=== PATIENT | male | born 1960 | race African-American/Black ===

== ENCOUNTER 2019-10-22 16:00 | Outpatient (CLI) | payer BC ==
--- NOTE | 2019-10-22 20:18 | RAD ---
OSSEOUS SURVEY: 10/22/19 INDICATION: History of multiple myeloma. COMPARISON: None. FINDINGS: There is a 10 mm oval well circumscribed lucency seen on the lateral projection within the region of the lamina of C2 that is likely right of midline on the AP projection of the cervical spine. In light of the patient's history of multiple myeloma, this would be suspicious for a lytic lesion. No additi onal lesion seen within the skull or C-spine. No suspicious lesions seen within the thoracic or lumba r spine. There are surgical clips seen left of midline within the upper abdomen. The visualized lungs are clear. There is mild multilevel thoracolumbar scoliosis. No suspicious lesion is seen within the right or left humerus. No suspicious lesion is seen in the right or left forearm bones. There is mil d degenerative change of both hips. No suspicious lesions seen within the pelvis. The bowel gas patte rn is unobstructed. No suspicious lesion seen within the right femur. No suspicious lesion is seen wi thin the left femur. There is a subchondral cyst-like abnormality involving the lateral tibial plate au of the right tibia suspicious for a subchondral geode. This measures 2.4 cm in its greatest dimens ion. There is moderate osteoarthrosis of the right and left knee. No additional suspicious lytic lesi on is seen involving the lower extremity. IMPRESSION: 1. Focal oval lucency involving the right lamina of C2 suspicious for myelomatous lesion. 2. A well circumscribed peripherally sclerotic lesion underlying the articular surface of the la teral femorotibial joint of the right knee within the tibia suspicious for a degenerative cyst. 3. No additional suspicious lesion identified. POS: JIM
== END 2019-10-22 16:01 | disposition home or self-care (01) ==
LOC: BICRAD 16:00
PROVIDERS: ATTEND Internal Medicine Hematology & Oncology
DX: C90.00 Multiple myeloma not having achieved remission (principal); D47.2 Monoclonal gammopathy; M25.861 Other specified joint disorders, right knee
CPT/HCPCS: 36415; 77075; 82232; 83883; 84165; 86334

== ENCOUNTER 2019-11-12 12:15 | Outpatient (CLI) | payer BC ==
--- NOTE | 2019-11-12 14:36 | PET ---
PET SCAN WITH CT ATTENUATION CORRECTION: HISTORY: Multiple myeloma. Lesions noted on skeletal survey. COMPARISON: None. CORRELATION: Whole body bone scan 10/22/2019. TECHNIQUE: PET scan with CT attenuation correction was performed from the base of the brain to the feet followin g the intravenous administration of 10.3 mCi of [id number]. FINDINGS: Head and neck: No abnormal FDG localization. Chest: No abnormal FDG localization. CT used for attenuation correction demonstrates dependent atelec tatic change. Abdomen pelvis: Physiologic distribution of radiotracer. Surgically absent right kidney. There is FDG localization in the left upper quadrant mesentery just posterior to the pancreas. Maximum SUV is 3.69. There is an associated soft tissue component, measuring 1.4 x 1.4 cm. Correlation made with a C T from 10/28/2014 does not demonstrate a soft tissue hypermetabolic focus. Osseous structures: There does not appear to be any FDG avidity associated with the sclerotic focus n oted at the C2 level. There is no abnormal FDG localization in the cervical, thoracic or lumbar vertebrae. Visualized ribs, sternum and bony pelvis do not demonstrate any and abnormal FDG localizat ion. There is no abnormal FDG localization involving the left or right upper extremity, left or right lower extremity. The focus of interest on the previous skeletal survey does not demonstrate any hypermetabolic activity. IMPRESSION: 1. No abnormal fluorodeoxyglucose localization at the C2 vertebral body or lateral right tibial plate au, at the level of concern on recent adult bone survey. No abnormal fluorodeoxyglucose localization in the osseous structures. 2. Hypermetabolic focus in the left upper quadrant mesentery just posterior and slightly superior to the pancreas. Findings may represent a hypermetabolic lymph node which may be due to a malignant, infectious or inflammatory process. Transcribed Date/Time: 11/12/2019 3:57 PM
== END 2019-11-12 12:16 | disposition home or self-care (01) ==
LOC: PET 12:15
PROVIDERS: ATTEND Internal Medicine Hematology & Oncology
DX: C90.00 Multiple myeloma not having achieved remission (principal)
CPT/HCPCS: 78816; A9552

== ENCOUNTER 2020-12-01 11:36 | Outpatient (CLI) | payer BC | END 2020-12-01 11:37 | disposition home or self-care (01) | LOC: CT 11:36 | PROVIDERS: ATTEND Internal Medicine Hematology & Oncology | DX: K86.89 Other specified diseases of pancreas (principal); R93.3 Abnormal findings on diagnostic imaging of other parts of digestive tract; K76.0 Fatty (change of) liver, not elsewhere classified; K57.30 Diverticulosis of large intestine without perforation or abscess without bleeding; Z90.5 Acquired absence of kidney | CPT/HCPCS: 74170; 82565 ==

== ENCOUNTER 2022-06-19 09:02 | Outpatient (CLI) | payer BC | END 2022-06-19 09:03 | disposition home or self-care (01) | LOC: TBSIIMAG 09:02 | PROVIDERS: ATTEND Nurse Practitioner Family | DX: M25.551 Pain in right hip (principal); M89.9 Disorder of bone, unspecified; Z85.79 Personal history of other malignant neoplasms of lymphoid, hematopoietic and related tissues ==

== ENCOUNTER 2022-07-09 10:25 | Outpatient (CLI) | payer BC ==
[2022-07-09] MEDS ORDERED: Iopamidol 370 76% 100 ML VIAL ONE (10:30)
== END 2022-07-09 10:26 | disposition home or self-care (01) ==
LOC: NM 10:25
PROVIDERS: ATTEND Internal Medicine Hematology & Oncology
DX: C79.51 Secondary malignant neoplasm of bone (principal); C61 Malignant neoplasm of prostate; R97.20 Elevated prostate specific antigen [PSA]; K86.9 Disease of pancreas, unspecified; D47.2 Monoclonal gammopathy; R91.1 Solitary pulmonary nodule; C90.00 Multiple myeloma not having achieved remission; R60.0 Localized edema; N32.89 Other specified disorders of bladder; M89.8X8 Other specified disorders of bone, other site
CPT/HCPCS: 71260; 74177; 78306; 82565; A9503; Q9967

== ENCOUNTER 2022-07-18 10:02 | Outpatient (CLI) | payer BC | END 2022-07-18 10:03 | disposition home or self-care (01) | LOC: BICRAD 10:02 | PROVIDERS: ATTEND Radiology Radiation Oncology | DX: M25.561 Pain in right knee (principal); C61 Malignant neoplasm of prostate; M17.11 Unilateral primary osteoarthritis, right knee; M16.11 Unilateral primary osteoarthritis, right hip; S80.251A Superficial foreign body, right knee, initial encounter ==

== ENCOUNTER 2022-07-23 12:33 | Inpatient (IN) | payer BC ==
[~2022-07-23 12:33] MED LIST: Iopamidol-370 76% 500 ML 1 ML ONE
[2022-07-23 12:58] LABS: #Eosinphils 0.1 thou/uL (0.0-0.7); #Lymphocytes 2.1 thou/uL (1.20-3.40); #Neutrophils 9.9 thou/uL (1.40-6.50); %Basophils 0.2 % (0.0-1.0); %Eosinophils 0.5 % (0.0-10.0); %Lymphocytes 14.7 % (21.0-51.0); %Monocytes 14.1 % (0.0-10.0); %Neutrophils 70.4 % (42.0-75.0); Hemoglobin 12.1 g/dL (14.0-18.0); Mean Corpuscular HGB CONC 32.6 g/dL (32.0-36.0); Mean Corpuscular Hemoglobin 28.9 pg (27.0-31.0); Mean Corpuscular Volume 88.5 fl (78.0-98.0); Platelet Count 326 10x3/uL (130-400); Red Blood Cell (RBC) Count 4.19 mill/uL (4.70-6.10)
[2022-07-23] MEDS ORDERED: Morphine 4 MG/ML VIAL ONE ×2 (13:11→21:30)
[2022-07-23] MEDS ORDERED: Ondansetron PF 4 MG/2 ML Vial ONE (13:11)
[2022-07-23 13:20] LABS: ALT (SGPT) 10 U/L (8-55); AST (SGOT) 15 U/L (5-34); Albumin 4.4 g/dL (3.5-5.0); Alkaline Phosphatase 102 U/L (40-110); Anion Gap 14 mmol/L (10-20); BUN (Urea Nitrogen) 23 mg/dL (8.4-25.7); Bilirubin, Total 0.7 mg/dL (0.2-1.2); Calc. Creatinine Clearance 0 mL/min (70-130); Calcium 8.5 mg/dL (7.8-10.44); Carbon Dioxide 19 mmol/L (22-29); Chloride 104 mmol/L (98-107); Estimated GFR 41; Glucose 156 mg/dL (70-105); Potassium 4.6 mmol/L (3.5-5.1); Protein, Total 9.4 g/dL (6.0-8.3); Sodium 132 mmol/L (136-145)
[2022-07-23 13:45] LABS: Bacteria/HPF None Seen HPF (None Seen); Bilirubin Negative (Negative); Blood, Urine Negative (Negative); Clarity Clear (Clear); Glucose, Urine (Dipstick) Normal (Negative); Ketone, Urine Negative (Negative); Leukocyte Negative Leu/uL (Negative); Nitrite Negative (Negative); Protein, Urine (Dipstick) 50 mg/dL (Neg-Trace); RBC/HPF 0-3 HPF (0-3); Squamous Epithelial 0-3 HPF (0-3); Urobilinogen Normal mg/dL (Less than 2); WBC/HPF 0-3 HPF (0-3); pH, Urine 5.5 (5.0-9.0)
[2022-07-23 13:51] LABS: INR-International Normal Ratio 1.2; PTT 33.6 sec (22.9-36.1); Prothrombin Time 15.8 sec (12.0-14.7)
[2022-07-23 14:46] LABS: SARS-CoV-2 NAA Rapid Test Not Detected (NotDetected)
[2022-07-23 19:06] LABS: Troponin I Less than 0.010 ng/mL (< 0.028)
[2022-07-23] MEDS ORDERED: Senokot S 8.6-50 MG TAB PO PRN (19:40)
[2022-07-23] MEDS ORDERED: Ondansetron PF 4 MG/2 ML Vial IVP PRN (19:40)
[2022-07-23] MEDS ORDERED: Ondansetron ODT 4 MG TAB PO PRN (19:40)
[2022-07-23] MEDS ORDERED: Dextrose 50% Abboject 50 ML SYRINGE SLOW IVP PRN (19:40)
[2022-07-23] MEDS ORDERED: Dextrose 5% in Water 1,000 ML IV PRN (19:40)
[2022-07-23 21:13] LABS: Magnesium 2.2 mg/dL (1.6-2.6)
[2022-07-23] MEDS ORDERED: Lactated Ringer's 1,000 ML IV SCH (21:15)
[2022-07-23 21:19] LABS: Troponin I 0.015 ng/mL (< 0.028)
[2022-07-23] MEDS: Morphine 4 MG/ML VIAL SLOW IVP PRN (21:29)
[2022-07-23] MEDS ORDERED: Electrolyte Replacement Protocol 1 EACH FS SCH (21:30)
[2022-07-23] MEDS ORDERED: Cefepime 2 GM in Sodium Chloride 0.9% 100 ML IVPB SCH (22:30)
[2022-07-23] MEDS: HYDROcodone/Acetaminophen 5/325 mg Tablet PO PRN (22:55)
[2022-07-23 23:19] VITALS: BMI 31.1
[2022-07-23] MEDS ORDERED: Enoxaparin 120 MG/0.8 ML SYRINGE SC SCH (23:30)
[2022-07-23] MEDS ORDERED: VANCOMYCIN 2 GRAM/500 ML BAG 2 GM in Premix Bag 1 BAG IVPB SCH (23:59)
[2022-07-24] MEDS: HYDROcodone/Acetaminophen 5/325 mg Tablet PO PRN ×2 (03:11→08:44)
[2022-07-24 07:54] LABS: #Eosinphils 0.2 thou/uL (0.0-0.7); #Monocytes 1.4 thou/uL (0.11-0.59); #Neutrophils 6.3 thou/uL (1.40-6.50); %Basophils 0.1 % (0.0-1.0); %Eosinophils 1.8 % (0.0-10.0); %Lymphocytes 20.2 % (21.0-51.0); %Monocytes 14.1 % (0.0-10.0); %Neutrophils 63.7 % (42.0-75.0); Hemoglobin 10.1 g/dL (14.0-18.0); Mean Corpuscular Hemoglobin 28.7 pg (27.0-31.0); Mean Corpuscular Volume 89.6 fl (78.0-98.0); Mean Platelet Volume 7.6 fL (7.4-10.4); Platelet Count 304 10x3/uL (130-400); Red Blood Cell (RBC) Count 3.53 mill/uL (4.70-6.10)
[2022-07-24 08:14] LABS: Anion Gap 14 mmol/L (10-20); BUN (Urea Nitrogen) 20 mg/dL (8.4-25.7); Calc. Creatinine Clearance 76 mL/min (70-130); Calcium 7.8 mg/dL (7.8-10.44); Carbon Dioxide 18 mmol/L (22-29); Chloride 106 mmol/L (98-107); Estimated GFR 49; Glucose 149 mg/dL (70-105); Potassium 4.5 mmol/L (3.5-5.1); Sodium 133 mmol/L (136-145)
[2022-07-24] MEDS: PHOS-NAK 1 PKT PACK PO SCH ×2 (08:47→14:19)
[2022-07-24] MEDS ORDERED: FLU VACC QS2022-23(6MOS UP)/PF 60 MCG/0.5 ML SYRINGE IM ONE (09:00)
[2022-07-24] MEDS ORDERED: Enoxaparin 120 MG/0.8 ML SYRINGE SC SCH (09:00)
[2022-07-24] MEDS: fentaNYL 50 mcg/hour Patch TD SCH (11:03)
[2022-07-24] MEDS: Cefepime 2 GM in Sodium Chloride 0.9% 100 ML IVPB SCH ×2 (11:04→23:21)
[2022-07-24] MEDS: HYDROcodone/Acetaminophen 10/325 mg Tablet PO PRN ×3 (14:20→23:57)
[2022-07-24] MEDS ORDERED: Allopurinol 300 MG TAB PO SCH (16:30)
[2022-07-24] MEDS: Gabapentin 300 MG CAP PO SCH (21:04)
[2022-07-24] MEDS: Morphine 4 MG/ML VIAL SLOW IVP PRN (21:05)
[2022-07-24] MEDS: Senokot S 8.6-50 MG TAB PO SCH (21:05)
[2022-07-24] MEDS: HumaLOG 300 UNITS/3 ML VIAL SC PRN (21:06)
[2022-07-24] MEDS: VANCOMYCIN 1.75 GM/500 ML BAG 1.75 GM in Premix Bag 1 BAG IVPB SCH (23:59)
[2022-07-25] MEDS: Morphine 4 MG/ML VIAL SLOW IVP PRN ×3 (04:12→17:55)
[2022-07-25 05:25] LABS: Anion Gap 12 mmol/L (10-20); BUN (Urea Nitrogen) 18 mg/dL (8.4-25.7); Calc. Creatinine Clearance 73 mL/min (70-130); Calcium 7.6 mg/dL (7.8-10.44); Carbon Dioxide 21 mmol/L (22-29); Chloride 106 mmol/L (98-107); Estimated GFR 47; Glucose 178 mg/dL (70-105); Potassium 4.6 mmol/L (3.5-5.1); Sodium 134 mmol/L (136-145)
[2022-07-25 05:31] LABS: Mean Corpuscular HGB CONC 32.2 g/dL (32.0-36.0); Mean Corpuscular Hemoglobin 28.8 pg (27.0-31.0); Mean Corpuscular Volume 89.5 fl (78.0-98.0); Mean Platelet Volume 8.3 fL (7.4-10.4); Platelet Count 296 10x3/uL (130-400); RBC Distribution Width 13.2 % (11.5-14.5); Red Blood Cell (RBC) Count 3.45 mill/uL (4.70-6.10); White Blood Cell (WBC) Count 8.8 10x3/uL (4.8-10.8)
[2022-07-25] MEDS: HYDROcodone/Acetaminophen 10/325 mg Tablet PO PRN (05:44)
[2022-07-25] MEDS: HumaLOG 300 UNITS/3 ML VIAL SC PRN (05:46)
[2022-07-25 06:25] LABS: Eosinophils 5 % (0-10); Lymphocytes 25 % (21-51); MDiff Complete? YES; Monocytes 11 % (0-10); Myelocyte 1 % (0-0); Neutrophil 58 % (42-75); Platelet Morphology Comment Appears Adequate; Polychromasia SLIGHT = 2-3 cells (100X) (0-2/hpf)
[2022-07-25] MEDS: Gabapentin 300 MG CAP PO SCH ×2 (08:33→20:34)
[2022-07-25] MEDS: Allopurinol 300 MG TAB PO SCH (08:33)
[2022-07-25] MEDS: Polyethylene Glycol 3350 17 GM Packet PO SCH (08:35)
[2022-07-25] MEDS: Senokot S 8.6-50 MG TAB PO SCH ×2 (08:36→20:34)
[2022-07-25] MEDS: Morphine ER 15 MG TAB PO SCH ×2 (11:41→20:34)
[2022-07-25] MEDS: Cefepime 2 GM in Sodium Chloride 0.9% 100 ML IVPB SCH ×2 (11:42→23:21)
[2022-07-25] MEDS ORDERED: Albumin 25% 25 GM/100 ML BOT IVPB SCH (12:00)
[2022-07-25] MEDS: Acetaminophen 325 MG TAB PO PRN (20:33)
[2022-07-25 23:22] LABS: Vancomycin, Trough 8.9 ug/mL
[2022-07-26] MEDS: VANCOMYCIN 1.25 GM/250 ML BAG 1.25 GM in Premix Bag 1 BAG IVPB SCH ×2 (00:47→13:06)
[2022-07-26] MEDS: VANCOMYCIN 1.75 GM/500 ML BAG 1.75 GM in Premix Bag 1 BAG IVPB SCH (03:40)
[2022-07-26] MEDS: HYDROcodone/Acetaminophen 10/325 mg Tablet PO PRN ×3 (04:05→22:02)
[2022-07-26 04:53] LABS: #Eosinphils 0.4 thou/uL (0.0-0.7); #Monocytes 1.3 thou/uL (0.11-0.59); #Neutrophils 5.1 thou/uL (1.40-6.50); %Basophils 0.4 % (0.0-1.0); %Eosinophils 4.3 % (0.0-10.0); %Lymphocytes 22.6 % (21.0-51.0); %Monocytes 14.6 % (0.0-10.0); %Neutrophils 58.1 % (42.0-75.0); Hemoglobin 9.8 g/dL (14.0-18.0); Mean Corpuscular HGB CONC 33.2 g/dL (32.0-36.0); Mean Corpuscular Hemoglobin 29.7 pg (27.0-31.0); Mean Corpuscular Volume 89.5 fl (78.0-98.0); Mean Platelet Volume 8.1 fL (7.4-10.4); Platelet Count 305 10x3/uL (130-400); RBC Distribution Width 13.3 % (11.5-14.5); Red Blood Cell (RBC) Count 3.31 mill/uL (4.70-6.10); White Blood Cell (WBC) Count 8.7 10x3/uL (4.8-10.8)
[2022-07-26 05:16] LABS: Anion Gap 14 mmol/L (10-20); BUN (Urea Nitrogen) 18 mg/dL (8.4-25.7); Calc. Creatinine Clearance 70 mL/min (70-130); Calcium 7.6 mg/dL (7.8-10.44); Carbon Dioxide 20 mmol/L (22-29); Chloride 102 mmol/L (98-107); Estimated GFR 44; Glucose 188 mg/dL (70-105); Potassium 4.6 mmol/L (3.5-5.1); Sodium 131 mmol/L (136-145)
[2022-07-26] MEDS: HumaLOG 300 UNITS/3 ML VIAL SC PRN (06:12)
[2022-07-26] MEDS: Allopurinol 300 MG TAB PO SCH (10:00)
[2022-07-26] MEDS: Morphine ER 15 MG TAB PO SCH ×2 (10:01→20:33)
[2022-07-26] MEDS: Gabapentin 300 MG CAP PO SCH ×2 (10:01→20:34)
[2022-07-26] MEDS: Senokot S 8.6-50 MG TAB PO SCH ×2 (10:02→20:34)
[2022-07-26] MEDS: Polyethylene Glycol 3350 17 GM Packet PO SCH (10:02)
[2022-07-26] MEDS ORDERED: NIFEdipine XL 60 MG TAB PO SCH ×4 (11:34→12:15)
[2022-07-26] MEDS: Cefepime 2 GM in Sodium Chloride 0.9% 100 ML IVPB SCH ×2 (11:43→22:03)
[2022-07-26] MEDS ORDERED: cloNIDine 0.1 MG TAB PO PRN (13:40)
[2022-07-26] MEDS ORDERED: Losartan 25 MG TAB PO SCH (14:00)
[2022-07-26] MEDS: glipiZIDE 5 MG TAB PO SCH (17:37)
[2022-07-26] MEDS: NIFEdipine XL 60 MG TAB PO SCH (20:34)
[2022-07-26] MEDS ORDERED: NIFEdipine XL 90 MG TAB PO SCH (21:00)
[2022-07-27] MEDS: VANCOMYCIN 1.25 GM/250 ML BAG 1.25 GM in Premix Bag 1 BAG IVPB SCH (01:33)
[2022-07-27 04:43] LABS: #Eosinphils 0.2 thou/uL (0.0-0.7); #Lymphocytes 1.8 thou/uL (1.20-3.40); #Monocytes 1.4 thou/uL (0.11-0.59); #Neutrophils 7.4 thou/uL (1.40-6.50); %Basophils 0.2 % (0.0-1.0); %Eosinophils 2.1 % (0.0-10.0); %Lymphocytes 16.8 % (21.0-51.0); %Monocytes 13.1 % (0.0-10.0); %Neutrophils 67.8 % (42.0-75.0); Mean Corpuscular HGB CONC 32.7 g/dL (32.0-36.0); Mean Corpuscular Hemoglobin 29.1 pg (27.0-31.0); Mean Corpuscular Volume 88.9 fl (78.0-98.0); Platelet Count 329 10x3/uL (130-400); RBC Distribution Width 13.4 % (11.5-14.5); Red Blood Cell (RBC) Count 3.44 mill/uL (4.70-6.10); White Blood Cell (WBC) Count 10.8 10x3/uL (4.8-10.8)
[2022-07-27 05:04] LABS: Anion Gap 15 mmol/L (10-20); BUN (Urea Nitrogen) 22 mg/dL (8.4-25.7); Calc. Creatinine Clearance 62 mL/min (70-130); Calcium 7.6 mg/dL (7.8-10.44); Carbon Dioxide 19 mmol/L (22-29); Chloride 101 mmol/L (98-107); Estimated GFR 38; Glucose 302 mg/dL (70-105); Potassium 4.8 mmol/L (3.5-5.1); Sodium 130 mmol/L (136-145)
[2022-07-27] MEDS: HYDROcodone/Acetaminophen 10/325 mg Tablet PO PRN ×2 (07:30→14:55)
[2022-07-27] MEDS: Cholecalciferol 1,000 UNITS (25 MCG) TAB PO SCH (08:57)
[2022-07-27] MEDS: NIFEdipine XL 60 MG TAB PO SCH ×2 (08:57→20:25)
[2022-07-27] MEDS: Polyethylene Glycol 3350 17 GM Packet PO SCH (08:57)
[2022-07-27] MEDS: Morphine ER 15 MG TAB PO SCH ×2 (08:57→20:25)
[2022-07-27] MEDS: Allopurinol 300 MG TAB PO SCH (08:58)
[2022-07-27] MEDS: Gabapentin 300 MG CAP PO SCH ×2 (08:58→20:25)
[2022-07-27] MEDS: glipiZIDE 5 MG TAB PO SCH ×2 (08:58→17:20)
[2022-07-27] MEDS: Senokot S 8.6-50 MG TAB PO SCH ×2 (08:59→20:25)
[2022-07-27] MEDS ORDERED: NIFEdipine XL 90 MG TAB PO SCH (09:00)
[2022-07-27] MEDS ORDERED: Losartan 25 MG TAB PO SCH (09:00)
[2022-07-27] MEDS: fentaNYL 50 mcg/hour Patch TD SCH (11:46)
[2022-07-27] MEDS: Cefepime 2 GM in Sodium Chloride 0.9% 100 ML IVPB SCH (11:48)
[2022-07-27 12:16] LABS: Vancomycin, Trough 20.7 ug/mL
[2022-07-27] MEDS ORDERED: methylPREDNISolone Sod Succ 40 MG VIAL IVP SCH (17:15)
[2022-07-27] MEDS: Morphine 4 MG/ML VIAL SLOW IVP PRN (17:22)
[2022-07-27] MEDS: HumaLOG 300 UNITS/3 ML VIAL SC PRN (21:47)
[2022-07-28] MEDS ORDERED: Vancomycin 1 GM in Premix Bag 1 BAG IVPB SCH (01:00)
[2022-07-28] MEDS: HumaLOG 300 UNITS/3 ML VIAL SC PRN ×5 (01:39→20:28)
[2022-07-28] MEDS ORDERED: Milk Of Magnesia 30 ML UDCUP PO PRN (03:50)
[2022-07-28 05:13] LABS: #Lymphocytes 0.9 thou/uL (1.20-3.40); #Monocytes 0.6 thou/uL (0.11-0.59); %Eosinophils 0.2 % (0.0-10.0); %Monocytes 4.5 % (0.0-10.0); %Neutrophils 88.3 % (42.0-75.0); Hemoglobin 9.7 g/dL (14.0-18.0); Mean Corpuscular HGB CONC 31.5 g/dL (32.0-36.0); Mean Corpuscular Hemoglobin 28.6 pg (27.0-31.0); Mean Corpuscular Volume 90.7 fl (78.0-98.0); Mean Platelet Volume 9.9 fL (7.4-10.4); Platelet Count 319 10x3/uL (130-400); RBC Distribution Width 13.3 % (11.5-14.5); Red Blood Cell (RBC) Count 3.39 mill/uL (4.70-6.10); White Blood Cell (WBC) Count 12.5 10x3/uL (4.8-10.8)
[2022-07-28 05:14] LABS: Hemoglobin A1c 6.3 % (4.0-6.0)
[2022-07-28 05:28] LABS: Anion Gap 17 mmol/L (10-20); BUN (Urea Nitrogen) 35 mg/dL (8.4-25.7); Calc. Creatinine Clearance 53 mL/min (70-130); Calcium 7.8 mg/dL (7.8-10.44); Carbon Dioxide 16 mmol/L (22-29); Chloride 99 mmol/L (98-107); Estimated GFR 32; Potassium 5.6 mmol/L (3.5-5.1); Sodium 126 mmol/L (136-145)
[2022-07-28 05:32] LABS: Glucose 503 mg/dL (70-105)
[2022-07-28] MEDS ORDERED: Insulin Glargine 30 UNITS/0.3 ML VIAL SC SCH ×2 (06:00→17:15)
[2022-07-28] MEDS: Gabapentin 300 MG CAP PO SCH ×2 (08:51→20:27)
[2022-07-28] MEDS: Morphine ER 15 MG TAB PO SCH ×2 (08:52→20:26)
[2022-07-28] MEDS: Senokot S 8.6-50 MG TAB PO SCH ×2 (08:52→20:28)
[2022-07-28] MEDS: Allopurinol 300 MG TAB PO SCH (08:52)
[2022-07-28] MEDS: glipiZIDE 5 MG TAB PO SCH ×2 (08:52→17:28)
[2022-07-28] MEDS: Cholecalciferol 1,000 UNITS (25 MCG) TAB PO SCH (08:52)
[2022-07-28] MEDS: NIFEdipine XL 60 MG TAB PO SCH ×2 (08:52→20:27)
[2022-07-28] MEDS: Polyethylene Glycol 3350 17 GM Packet PO SCH ×2 (08:54→20:28)
[2022-07-28] MEDS ORDERED: methylPREDNISolone Sod Succ 40 MG VIAL IVP SCH (09:00)
[2022-07-28] MEDS: HYDROcodone/Acetaminophen 10/325 mg Tablet PO PRN (13:47)
[2022-07-28 21:02] LABS: Anion Gap 16 mmol/L (10-20); BUN (Urea Nitrogen) 45 mg/dL (8.4-25.7); Calc. Creatinine Clearance 51 mL/min (70-130); Calcium 8.2 mg/dL (7.8-10.44); Carbon Dioxide 19 mmol/L (22-29); Chloride 98 mmol/L (98-107); Estimated GFR 30; Potassium 5.5 mmol/L (3.5-5.1); Sodium 127 mmol/L (136-145)
[2022-07-28 21:04] LABS: Glucose 645 mg/dL (70-105)
[2022-07-29] MEDS: Albumin 25% 25 GM/100 ML BOT IVPB SCH ×5 (00:09→23:58)
[2022-07-29] MEDS: HumaLOG 300 UNITS/3 ML VIAL SC PRN ×3 (00:17→12:55)
[2022-07-29 04:57] LABS: #Lymphocytes 1.7 thou/uL (1.20-3.40); #Monocytes 1.4 thou/uL (0.11-0.59); #Neutrophils 13.6 thou/uL (1.40-6.50); %Basophils 0.1 % (0.0-1.0); %Eosinophils 0.3 % (0.0-10.0); %Lymphocytes 10.1 % (21.0-51.0); %Monocytes 8.2 % (0.0-10.0); %Neutrophils 81.4 % (42.0-75.0); Hemoglobin 9.7 g/dL (14.0-18.0); Mean Corpuscular HGB CONC 32.1 g/dL (32.0-36.0); Mean Corpuscular Hemoglobin 28.8 pg (27.0-31.0); Mean Corpuscular Volume 89.7 fl (78.0-98.0); Platelet Count 393 10x3/uL (130-400); RBC Distribution Width 13.4 % (11.5-14.5); Red Blood Cell (RBC) Count 3.37 mill/uL (4.70-6.10); White Blood Cell (WBC) Count 16.7 10x3/uL (4.8-10.8)
[2022-07-29 05:21] LABS: Anion Gap 15 mmol/L (10-20); BUN (Urea Nitrogen) 45 mg/dL (8.4-25.7); Calc. Creatinine Clearance 59 mL/min (70-130); Calcium 8.4 mg/dL (7.8-10.44); Carbon Dioxide 21 mmol/L (22-29); Chloride 101 mmol/L (98-107); Estimated GFR 36; Potassium 5.1 mmol/L (3.5-5.1); Sodium 132 mmol/L (136-145)
[2022-07-29 05:25] LABS: Glucose 427 mg/dL (70-105)
[2022-07-29] MEDS: glipiZIDE 5 MG TAB PO SCH ×2 (08:55→17:26)
[2022-07-29] MEDS: Allopurinol 300 MG TAB PO SCH (08:55)
[2022-07-29] MEDS: predniSONE 5 MG TAB PO SCH (08:55)
[2022-07-29] MEDS: Cholecalciferol 1,000 UNITS (25 MCG) TAB PO SCH (08:55)
[2022-07-29] MEDS: NIFEdipine XL 60 MG TAB PO SCH ×2 (08:56→20:53)
[2022-07-29] MEDS: Senokot S 8.6-50 MG TAB PO SCH ×2 (08:56→20:54)
[2022-07-29] MEDS: Gabapentin 300 MG CAP PO SCH ×2 (08:57→20:54)
[2022-07-29] MEDS: Morphine ER 15 MG TAB PO SCH ×2 (08:57→20:54)
[2022-07-29] MEDS: Insulin Glargine 30 UNITS/0.3 ML VIAL SC SCH (08:58)
[2022-07-29] MEDS: Polyethylene Glycol 3350 17 GM Packet PO SCH ×2 (08:58→20:55)
[2022-07-29] MEDS ORDERED: Albumin 25% 25 GM/100 ML BOT IVPB SCH (12:00)
[2022-07-29] MEDS: Acetaminophen 325 MG TAB PO PRN (12:54)
[2022-07-29] MEDS: HYDROcodone/Acetaminophen 10/325 mg Tablet PO PRN (17:25)
[2022-07-30 04:49] LABS: #Eosinphils 0.2 thou/uL (0.0-0.7); #Lymphocytes 1.6 thou/uL (1.20-3.40); #Monocytes 0.8 thou/uL (0.11-0.59); #Neutrophils 9.7 thou/uL (1.40-6.50); %Eosinophils 1.4 % (0.0-10.0); %Lymphocytes 13.4 % (21.0-51.0); %Monocytes 6.4 % (0.0-10.0); %Neutrophils 78.8 % (42.0-75.0); Hemoglobin 9.8 g/dL (14.0-18.0); Mean Corpuscular HGB CONC 32.5 g/dL (32.0-36.0); Mean Corpuscular Volume 89.3 fl (78.0-98.0); Mean Platelet Volume 7.8 fL (7.4-10.4); Platelet Count 450 10x3/uL (130-400); RBC Distribution Width 13.6 % (11.5-14.5); Red Blood Cell (RBC) Count 3.37 mill/uL (4.70-6.10); White Blood Cell (WBC) Count 12.3 10x3/uL (4.8-10.8)
[2022-07-30 05:11] LABS: Anion Gap 15 mmol/L (10-20); BUN (Urea Nitrogen) 35 mg/dL (8.4-25.7); Calc. Creatinine Clearance 68 mL/min (70-130); Calcium 8.6 mg/dL (7.8-10.44); Carbon Dioxide 21 mmol/L (22-29); Chloride 105 mmol/L (98-107); Estimated GFR 43; Glucose 254 mg/dL (70-105); Sodium 136 mmol/L (136-145)
[2022-07-30] MEDS: Albumin 25% 25 GM/100 ML BOT IVPB SCH ×4 (06:36→23:36)
[2022-07-30] MEDS: HumaLOG 300 UNITS/3 ML VIAL SC PRN ×3 (06:41→17:32)
[2022-07-30] MEDS: Cholecalciferol 1,000 UNITS (25 MCG) TAB PO SCH (10:05)
[2022-07-30] MEDS: Polyethylene Glycol 3350 17 GM Packet PO SCH ×2 (10:05→21:16)
[2022-07-30] MEDS: NIFEdipine XL 60 MG TAB PO SCH ×2 (10:06→21:16)
[2022-07-30] MEDS: Gabapentin 300 MG CAP PO SCH ×2 (10:06→21:16)
[2022-07-30] MEDS: Morphine ER 15 MG TAB PO SCH ×2 (10:06→21:16)
[2022-07-30] MEDS: Senokot S 8.6-50 MG TAB PO SCH ×2 (10:06→21:16)
[2022-07-30] MEDS: glipiZIDE 5 MG TAB PO SCH ×2 (10:07→16:46)
[2022-07-30] MEDS: Allopurinol 300 MG TAB PO SCH (10:07)
[2022-07-30] MEDS: predniSONE 5 MG TAB PO SCH (10:07)
[2022-07-30] MEDS: Insulin Glargine 30 UNITS/0.3 ML VIAL SC SCH ×2 (10:07→21:17)
[2022-07-30] MEDS: fentaNYL 50 mcg/hour Patch TD SCH (11:50)
[2022-07-30] MEDS: HYDROcodone/Acetaminophen 10/325 mg Tablet PO PRN (14:14)
[2022-07-31 05:17] LABS: #Eosinphils 0.2 thou/uL (0.0-0.7); #Lymphocytes 2.3 thou/uL (1.20-3.40); #Monocytes 0.9 thou/uL (0.11-0.59); #Neutrophils 9.1 thou/uL (1.40-6.50); %Basophils 0.3 % (0.0-1.0); %Eosinophils 1.8 % (0.0-10.0); %Lymphocytes 18.1 % (21.0-51.0); %Monocytes 6.9 % (0.0-10.0); Hemoglobin 9.4 g/dL (14.0-18.0); Mean Corpuscular Hemoglobin 28.5 pg (27.0-31.0); Mean Platelet Volume 7.9 fL (7.4-10.4); Platelet Count 446 10x3/uL (130-400); RBC Distribution Width 13.7 % (11.5-14.5); Red Blood Cell (RBC) Count 3.28 mill/uL (4.70-6.10); White Blood Cell (WBC) Count 12.5 10x3/uL (4.8-10.8)
[2022-07-31 05:38] LABS: Anion Gap 16 mmol/L (10-20); BUN (Urea Nitrogen) 34 mg/dL (8.4-25.7); Calc. Creatinine Clearance 73 mL/min (70-130); Calcium 8.9 mg/dL (7.8-10.44); Carbon Dioxide 21 mmol/L (22-29); Chloride 104 mmol/L (98-107); Estimated GFR 46; Glucose 265 mg/dL (70-105); Sodium 136 mmol/L (136-145)
[2022-07-31] MEDS: Albumin 25% 25 GM/100 ML BOT IVPB SCH ×2 (05:42→11:35)
[2022-07-31] MEDS: HumaLOG 300 UNITS/3 ML VIAL SC PRN (05:42)
[2022-07-31] MEDS: Polyethylene Glycol 3350 17 GM Packet PO SCH (08:10)
[2022-07-31] MEDS: glipiZIDE 5 MG TAB PO SCH (08:10)
[2022-07-31] MEDS: Allopurinol 300 MG TAB PO SCH (08:11)
[2022-07-31] MEDS: Gabapentin 300 MG CAP PO SCH (08:11)
[2022-07-31] MEDS: NIFEdipine XL 60 MG TAB PO SCH (08:11)
[2022-07-31] MEDS: predniSONE 5 MG TAB PO SCH (08:11)
[2022-07-31] MEDS: Senokot S 8.6-50 MG TAB PO SCH (08:11)
[2022-07-31] MEDS: Morphine ER 15 MG TAB PO SCH (08:11)
[2022-07-31] MEDS: Insulin Glargine 30 UNITS/0.3 ML VIAL SC SCH (08:12)
[2022-07-31] MEDS: Cholecalciferol 1,000 UNITS (25 MCG) TAB PO SCH (08:12)
[2022-07-31] MEDS ORDERED: metFORMIN 500 MG TAB PO SCH (09:00)
[2022-07-31 09:04] VITALS: TEMP 97.2
[2022-07-31 12:01] VITALS: BP 165/87
== END 2022-07-31 15:25 | disposition home health service (06) | DRG 554 ==
LOC: ERS 12:33 → 2NO 17:49 → ERHOLD 17:49 → 2NO 22:28 → OBSVTOIN 07-24 10:26
PROVIDERS: ADMIT Internal Medicine; ATTEND Internal Medicine
DX: M10.9 Gout, unspecified (principal); C79.51 Secondary malignant neoplasm of bone; N17.9 Acute kidney failure, unspecified; C90.00 Multiple myeloma not having achieved remission; R65.10 Systemic inflammatory response syndrome (SIRS) of non-infectious origin without acute organ dysfunction; E87.1 Hypo-osmolality and hyponatremia; G89.3 Neoplasm related pain (acute) (chronic); E11.65 Type 2 diabetes mellitus with hyperglycemia; T38.0X5A Adverse effect of glucocorticoids and synthetic analogues, initial encounter; C61 Malignant neoplasm of prostate; N18.32 Chronic kidney disease, stage 3b; E11.22 Type 2 diabetes mellitus with diabetic chronic kidney disease; I12.9 Hypertensive chronic kidney disease with stage 1 through stage 4 chronic kidney disease, or unspecified chronic kidney disease; Z20.822 Contact with and (suspected) exposure to COVID-19; D47.2 Monoclonal gammopathy; M25.462 Effusion, left knee; M25.461 Effusion, right knee; E86.1 Hypovolemia; Z88.0 Allergy status to penicillin; Z88.2 Allergy status to sulfonamides; Z79.899 Other long term (current) drug therapy; Z79.84 Long term (current) use of oral hypoglycemic drugs; Z90.5 Acquired absence of kidney; Z98.890 Other specified postprocedural states
CPT/HCPCS: 36415; 36416; 71275; 76775; 80048; 80053; 80202; 81003; 81015; 83036; 83605; 83735; 83880; 84100; 84145; 84484; 84550; 85025; 85610; 85652; 85730; 86140; 87040; 87086; 87811; 93005; 96372; 96374; 96375; 96376; G0378; J0692; J1650; J1815; J2270; J2405; J2920; J3370; J3490; J7120; J7512; P9047; Q9967

== ENCOUNTER 2022-08-13 11:40 | Inpatient (IN) | payer BC ==
[2022-08-13] MEDS ORDERED: FENTANYL 50 MCG/ML 1 ML VIAL ONE (12:00)
[2022-08-13 12:25] LABS: #Lymphocytes 0.6 thou/uL (1.20-3.40); #Monocytes 0.9 thou/uL (0.11-0.59); #Neutrophils 8.1 thou/uL (1.40-6.50); %Basophils 0.1 % (0.0-1.0); %Eosinophils 0.2 % (0.0-10.0); %Lymphocytes 6.3 % (21.0-51.0); %Monocytes 8.9 % (0.0-10.0); %Neutrophils 84.4 % (42.0-75.0); Hemoglobin 9.5 g/dL (14.0-18.0); Mean Corpuscular HGB CONC 33.9 g/dL (32.0-36.0); Mean Corpuscular Hemoglobin 29.3 pg (27.0-31.0); Mean Corpuscular Volume 86.5 fl (78.0-98.0); Mean Platelet Volume 7.5 fL (7.4-10.4); Platelet Count 312 10x3/uL (130-400); RBC Distribution Width 14.3 % (11.5-14.5); Red Blood Cell (RBC) Count 3.23 mill/uL (4.70-6.10); White Blood Cell (WBC) Count 9.6 10x3/uL (4.8-10.8)
[2022-08-13 12:51] LABS: CRP (Inflammatory) 30.71 mg/dL (= or < 0.5)
[2022-08-13 12:52] LABS: ALT (SGPT) 16 U/L (8-55); AST (SGOT) 19 U/L (5-34); Albumin 4.3 g/dL (3.5-5.0); Alkaline Phosphatase 107 U/L (40-110); Anion Gap 17 mmol/L (10-20); BUN (Urea Nitrogen) 30 mg/dL (8.4-25.7); Bilirubin, Total 1.1 mg/dL (0.2-1.2); Calc. Creatinine Clearance 0 mL/min (70-130); Calcium 9.2 mg/dL (7.8-10.44); Carbon Dioxide 18 mmol/L (22-29); Chloride 100 mmol/L (98-107); Estimated GFR 34; Globulin 5.1 g/dL (2.4-3.5); Glucose 203 mg/dL (70-105); Potassium 4.8 mmol/L (3.5-5.1); Protein, Total 9.4 g/dL (6.0-8.3); Sodium 130 mmol/L (136-145)
[2022-08-13] MEDS ORDERED: Iopamidol-370 76% 500 ML MDV (1 ML CHARGE) ONE (13:19)
[2022-08-13] MEDS ORDERED: Cefepime 2 GM VIAL ONE (14:04)
[2022-08-13] MEDS ORDERED: Vancomycin 1.5 GRAM/300 ML BAG 1.5 GM in Premix Bag 1 BAG IVPB SCH (14:15)
[2022-08-13 16:26] LABS: Troponin I Less than 0.010 ng/mL (< 0.028)
[2022-08-13] MEDS ORDERED: Acetaminophen 325 MG TAB PO PRN (17:33)
[2022-08-13] MEDS ORDERED: Ondansetron PF 4 MG/2 ML Vial IVP PRN (17:33)
[2022-08-13] MEDS: Sodium Chloride 0.9% 1,000 ML IV SCH (17:56)
[2022-08-13] MEDS: HYDROcodone/Acetaminophen 5/325 mg Tablet PO PRN (18:02)
[2022-08-13 18:26] VITALS: BMI 29.1
[2022-08-13 19:08] LABS: Bacteria/HPF None Seen HPF (None Seen); Bilirubin Negative (Negative); Blood, Urine Negative (Negative); CAUTI Indications for Culture Fever or rigors; Clarity Clear (Clear); Glucose, Urine (Dipstick) Normal (Negative); Ketone, Urine Negative (Negative); Leukocyte Negative Leu/uL (Negative); Nitrite Negative (Negative); Protein, Urine (Dipstick) 30 mg/dL (Neg-Trace); RBC/HPF 0-3 HPF (0-3); Specific Gravity, Urine 1.033 (1.002-1.036); Squamous Epithelial 0-3 HPF (0-3); WBC/HPF 0-3 HPF (0-3); pH, Urine 5.5 (5.0-9.0)
[2022-08-13 19:08] LABS: Troponin I 0.017 ng/mL (< 0.028)
[2022-08-13 19:14] LABS: Urine Culture Reflex No No
[2022-08-13] MEDS: Gabapentin 300 MG CAP PO SCH (20:34)
[2022-08-13] MEDS: Insulin Glargine 30 UNITS/0.3 ML VIAL SC SCH (20:34)
[2022-08-13] MEDS: NIFEdipine XL 60 MG TAB PO SCH (20:36)
[2022-08-13] MEDS: Transdermal Patch Removal TOP SCH (20:39)
[2022-08-14] MEDS: HYDROcodone/Acetaminophen 5/325 mg Tablet PO PRN ×4 (01:08→20:27)
[2022-08-14] MEDS: Cefepime 1 GM in Sodium Chloride 0.9% 100 ML IVPB SCH ×2 (01:25→16:04)
[2022-08-14 05:09] LABS: #Eosinphils 0.1 thou/uL (0.0-0.7); #Lymphocytes 0.6 thou/uL (1.20-3.40); #Monocytes 1.2 thou/uL (0.11-0.59); #Neutrophils 7.7 thou/uL (1.40-6.50); %Basophils 0.1 % (0.0-1.0); %Eosinophils 1.3 % (0.0-10.0); %Lymphocytes 6.5 % (21.0-51.0); %Monocytes 12.3 % (0.0-10.0); %Neutrophils 79.9 % (42.0-75.0); Hemoglobin 7.9 g/dL (14.0-18.0); Mean Corpuscular HGB CONC 32.8 g/dL (32.0-36.0); Mean Corpuscular Hemoglobin 28.7 pg (27.0-31.0); Mean Corpuscular Volume 87.6 fl (78.0-98.0); Mean Platelet Volume 8.4 fL (7.4-10.4); Platelet Count 266 10x3/uL (130-400); RBC Distribution Width 14.3 % (11.5-14.5); Red Blood Cell (RBC) Count 2.76 mill/uL (4.70-6.10); White Blood Cell (WBC) Count 9.6 10x3/uL (4.8-10.8)
[2022-08-14 05:30] LABS: Anion Gap 13 mmol/L (10-20); BUN (Urea Nitrogen) 28 mg/dL (8.4-25.7); Calc. Creatinine Clearance 63 mL/min (70-130); Calcium 8.1 mg/dL (7.8-10.44); Carbon Dioxide 17 mmol/L (22-29); Chloride 103 mmol/L (98-107); Estimated GFR 42; Glucose 250 mg/dL (70-105); Potassium 4.8 mmol/L (3.5-5.1); Sodium 128 mmol/L (136-145)
[2022-08-14] MEDS: Sodium Chloride 0.9% 1,000 ML IV SCH ×3 (06:05→11:46)
[2022-08-14] MEDS ORDERED: Dextrose 50% Abboject 50 ML SYRINGE SLOW IVP PRN (07:40)
[2022-08-14] MEDS ORDERED: Dextrose 5% in Water 1,000 ML IV PRN (07:40)
[2022-08-14] MEDS: Lidocaine 4% Patch TD SCH ×2 (08:52→09:09)
[2022-08-14] MEDS: Gabapentin 300 MG CAP PO SCH ×3 (08:53→20:27)
[2022-08-14] MEDS: Allopurinol 100 MG TAB PO SCH (08:53)
[2022-08-14] MEDS: Bicalutamide 50 MG TAB PO SCH (08:53)
[2022-08-14] MEDS: Cholecalciferol 1,000 UNITS (25 MCG) TAB PO SCH (08:53)
[2022-08-14] MEDS: Insulin Glargine 30 UNITS/0.3 ML VIAL SC SCH ×2 (08:54→21:00)
[2022-08-14] MEDS: NIFEdipine XL 60 MG TAB PO SCH ×2 (08:54→20:28)
[2022-08-14] MEDS: HumaLOG 300 UNITS/3 ML VIAL SC PRN (11:33)
[2022-08-14] MEDS ORDERED: Lidocaine 1% (PF) 30 ML VIAL ONE (15:09)
[2022-08-14 15:52] LABS: #Eosinphils 0.1 thou/uL (0.0-0.7); #Lymphocytes 0.8 thou/uL (1.20-3.40); #Monocytes 0.8 thou/uL (0.11-0.59); #Neutrophils 6.6 thou/uL (1.40-6.50); %Basophils 0.2 % (0.0-1.0); %Eosinophils 1.7 % (0.0-10.0); %Lymphocytes 9.9 % (21.0-51.0); %Monocytes 9.8 % (0.0-10.0); %Neutrophils 78.4 % (42.0-75.0); Hemoglobin 8.4 g/dL (14.0-18.0); Mean Corpuscular HGB CONC 31.9 g/dL (32.0-36.0); Mean Corpuscular Hemoglobin 28.1 pg (27.0-31.0); Mean Corpuscular Volume 88.2 fl (78.0-98.0); Mean Platelet Volume 8.4 fL (7.4-10.4); Platelet Count 318 10x3/uL (130-400); RBC Distribution Width 14.4 % (11.5-14.5); Red Blood Cell (RBC) Count 2.98 mill/uL (4.70-6.10); White Blood Cell (WBC) Count 8.5 10x3/uL (4.8-10.8)
[2022-08-14] MEDS ORDERED: Morphine 2 MG/ML VIAL SLOW IVP PRN (16:09)
[2022-08-14 16:13] LABS: Anion Gap 17 mmol/L (10-20); BUN (Urea Nitrogen) 23 mg/dL (8.4-25.7); Calc. Creatinine Clearance 67 mL/min (70-130); Calcium 8.4 mg/dL (7.8-10.44); Carbon Dioxide 18 mmol/L (22-29); Chloride 106 mmol/L (98-107); Estimated GFR 45; Glucose 137 mg/dL (70-105); Potassium 4.6 mmol/L (3.5-5.1); Sodium 136 mmol/L (136-145)
[2022-08-14] MEDS ORDERED: fentaNYL 75 mcg/hour Patch TD SCH (17:00)
[2022-08-14] MEDS: Vancomycin 1.5 GRAM/300 ML BAG 1.5 GM in Premix Bag 1 BAG IVPB SCH (17:54)
[2022-08-14] MEDS ORDERED: methylPREDNISolone Sod Succ 40 MG VIAL IVP SCH (19:15)
[2022-08-14] MEDS: Transdermal Patch Removal TOP SCH (21:01)
[2022-08-15] MEDS: methylPREDNISolone Sod Succ 40 MG VIAL IVP SCH ×4 (00:49→17:06)
[2022-08-15] MEDS: Cefepime 1 GM in Sodium Chloride 0.9% 100 ML IVPB SCH ×2 (00:49→15:11)
[2022-08-15] MEDS: Sodium Chloride 0.9% 1,000 ML IV SCH ×5 (00:50→21:23)
[2022-08-15 04:49] LABS: #Lymphocytes 0.2 thou/uL (1.20-3.40); #Monocytes 0.1 thou/uL (0.11-0.59); #Neutrophils 7.2 thou/uL (1.40-6.50); %Basophils 0.1 % (0.0-1.0); %Lymphocytes 3.1 % (21.0-51.0); %Monocytes 0.9 % (0.0-10.0); %Neutrophils 95.9 % (42.0-75.0); Hemoglobin 8.3 g/dL (14.0-18.0); Mean Corpuscular HGB CONC 32.8 g/dL (32.0-36.0); Mean Corpuscular Hemoglobin 29.1 pg (27.0-31.0); Mean Corpuscular Volume 88.7 fl (78.0-98.0); Mean Platelet Volume 8.4 fL (7.4-10.4); Platelet Count 272 10x3/uL (130-400); RBC Distribution Width 14.6 % (11.5-14.5); Red Blood Cell (RBC) Count 2.85 mill/uL (4.70-6.10); White Blood Cell (WBC) Count 7.5 10x3/uL (4.8-10.8)
[2022-08-15 05:09] LABS: Anion Gap 17 mmol/L (10-20); BUN (Urea Nitrogen) 25 mg/dL (8.4-25.7); Calc. Creatinine Clearance 61 mL/min (70-130); Calcium 8.1 mg/dL (7.8-10.44); Carbon Dioxide 15 mmol/L (22-29); Chloride 106 mmol/L (98-107); Estimated GFR 40; Glucose 333 mg/dL (70-105); Potassium 5.1 mmol/L (3.5-5.1); Sodium 133 mmol/L (136-145)
[2022-08-15] MEDS: HumaLOG 300 UNITS/3 ML VIAL SC PRN ×3 (05:31→17:08)
[2022-08-15] MEDS: HYDROcodone/Acetaminophen 5/325 mg Tablet PO PRN ×2 (07:12→11:40)
[2022-08-15] MEDS: Bicalutamide 50 MG TAB PO SCH (08:55)
[2022-08-15] MEDS: NIFEdipine XL 60 MG TAB PO SCH ×2 (08:56→21:20)
[2022-08-15] MEDS: Allopurinol 100 MG TAB PO SCH (08:57)
[2022-08-15] MEDS: Gabapentin 300 MG CAP PO SCH ×3 (08:57→21:20)
[2022-08-15] MEDS: Insulin Glargine 30 UNITS/0.3 ML VIAL SC SCH ×2 (08:57→21:21)
[2022-08-15] MEDS: Cholecalciferol 1,000 UNITS (25 MCG) TAB PO SCH (08:58)
[2022-08-15] MEDS: Lidocaine 4% Patch TD SCH (08:59)
[2022-08-15] MEDS: Sodium Bicarbonate Tab 325 MG TAB PO SCH ×3 (10:03→21:21)
[2022-08-15 17:04] LABS: Vancomycin, Trough 8.7 ug/mL
[2022-08-15] MEDS: Vancomycin 1.5 GRAM/300 ML BAG 1.5 GM in Premix Bag 1 BAG IVPB SCH ×2 (17:52→18:22)
[2022-08-15] MEDS: Transdermal Patch Removal TOP SCH (21:21)
[2022-08-16] MEDS: methylPREDNISolone Sod Succ 40 MG VIAL IVP SCH ×2 (00:31→06:11)
[2022-08-16] MEDS: Cefepime 1 GM in Sodium Chloride 0.9% 100 ML IVPB SCH ×2 (00:32→13:06)
[2022-08-16 04:45] LABS: #Lymphocytes 0.3 thou/uL (1.20-3.40); #Monocytes 0.4 thou/uL (0.11-0.59); #Neutrophils 8.7 thou/uL (1.40-6.50); %Basophils 0.1 % (0.0-1.0); %Eosinophils 0.2 % (0.0-10.0); %Monocytes 4.1 % (0.0-10.0); %Neutrophils 92.7 % (42.0-75.0); Hemoglobin 7.1 g/dL (14.0-18.0); Mean Corpuscular HGB CONC 30.1 g/dL (32.0-36.0); Mean Corpuscular Hemoglobin 26.8 pg (27.0-31.0); Mean Corpuscular Volume 89.1 fl (78.0-98.0); Mean Platelet Volume 8.3 fL (7.4-10.4); Platelet Count 295 10x3/uL (130-400); RBC Distribution Width 14.7 % (11.5-14.5); Red Blood Cell (RBC) Count 2.64 mill/uL (4.70-6.10); White Blood Cell (WBC) Count 9.4 10x3/uL (4.8-10.8)
[2022-08-16 05:02] LABS: Anion Gap 12 mmol/L (10-20); BUN (Urea Nitrogen) 29 mg/dL (8.4-25.7); Calc. Creatinine Clearance 67 mL/min (70-130); Calcium 7.7 mg/dL (7.8-10.44); Carbon Dioxide 18 mmol/L (22-29); Chloride 108 mmol/L (98-107); Estimated GFR 45; Glucose 370 mg/dL (70-105); Potassium 5.1 mmol/L (3.5-5.1); Sodium 133 mmol/L (136-145)
[2022-08-16] MEDS: HumaLOG 300 UNITS/3 ML VIAL SC PRN ×3 (06:11→17:15)
[2022-08-16] MEDS: Sodium Chloride 0.9% 1,000 ML IV SCH ×3 (06:12→22:03)
[2022-08-16] MEDS: Sodium Bicarbonate Tab 325 MG TAB PO SCH ×3 (08:48→22:02)
[2022-08-16] MEDS: Cholecalciferol 1,000 UNITS (25 MCG) TAB PO SCH (08:49)
[2022-08-16] MEDS: Insulin Glargine 30 UNITS/0.3 ML VIAL SC SCH ×2 (08:50→22:03)
[2022-08-16] MEDS: NIFEdipine XL 60 MG TAB PO SCH ×2 (08:50→22:02)
[2022-08-16] MEDS: Gabapentin 300 MG CAP PO SCH ×3 (08:50→22:03)
[2022-08-16] MEDS: Lidocaine 4% Patch TD SCH (08:50)
[2022-08-16] MEDS: Allopurinol 100 MG TAB PO SCH (08:50)
[2022-08-16] MEDS: Bicalutamide 50 MG TAB PO SCH (08:55)
[2022-08-16] MEDS ORDERED: predniSONE 20 MG TAB PO SCH (09:00)
[2022-08-16] MEDS: HYDROcodone/Acetaminophen 5/325 mg Tablet PO PRN ×2 (11:31→22:01)
[2022-08-16] MEDS: Vancomycin 1.5 GRAM/300 ML BAG 1.5 GM in Premix Bag 1 BAG IVPB SCH (18:38)
[2022-08-16 21:54] LABS: Hemoglobin 8.3 g/dL (14.0-18.0)
[2022-08-16] MEDS: Transdermal Patch Removal TOP SCH (22:03)
[2022-08-17] MEDS: Cefepime 1 GM in Sodium Chloride 0.9% 100 ML IVPB SCH ×2 (02:18→15:07)
[2022-08-17] MEDS: Sodium Chloride 0.9% 1,000 ML IV SCH ×2 (02:18→15:07)
[2022-08-17 04:52] LABS: #Eosinphils 0.1 thou/uL (0.0-0.7); #Lymphocytes 0.7 thou/uL (1.20-3.40); #Monocytes 0.7 thou/uL (0.11-0.59); %Basophils 0.1 % (0.0-1.0); %Eosinophils 0.6 % (0.0-10.0); %Lymphocytes 7.5 % (21.0-51.0); %Monocytes 7.1 % (0.0-10.0); %Neutrophils 84.8 % (42.0-75.0); Hemoglobin 8.3 g/dL (14.0-18.0); Mean Corpuscular HGB CONC 33.1 g/dL (32.0-36.0); Mean Corpuscular Hemoglobin 29.2 pg (27.0-31.0); Mean Corpuscular Volume 88.2 fl (78.0-98.0); Mean Platelet Volume 7.5 fL (7.4-10.4); Platelet Count 277 10x3/uL (130-400); RBC Distribution Width 14.5 % (11.5-14.5); Red Blood Cell (RBC) Count 2.85 mill/uL (4.70-6.10); White Blood Cell (WBC) Count 9.4 10x3/uL (4.8-10.8)
[2022-08-17 05:11] LABS: Anion Gap 11 mmol/L (10-20); BUN (Urea Nitrogen) 26 mg/dL (8.4-25.7); Calc. Creatinine Clearance 74 mL/min (70-130); Calcium 7.9 mg/dL (7.8-10.44); Carbon Dioxide 20 mmol/L (22-29); Chloride 109 mmol/L (98-107); Estimated GFR 51; Glucose 244 mg/dL (70-105); Potassium 4.2 mmol/L (3.5-5.1); Sodium 136 mmol/L (136-145)
[2022-08-17] MEDS: HumaLOG 300 UNITS/3 ML VIAL SC PRN (06:01)
[2022-08-17] MEDS ORDERED: predniSONE 20 MG TAB PO SCH (08:00)
[2022-08-17] MEDS: NIFEdipine XL 60 MG TAB PO SCH (09:52)
[2022-08-17] MEDS: Gabapentin 300 MG CAP PO SCH ×2 (09:53→15:07)
[2022-08-17] MEDS: Allopurinol 100 MG TAB PO SCH (09:54)
[2022-08-17] MEDS: Sodium Bicarbonate Tab 325 MG TAB PO SCH ×2 (09:55→15:07)
[2022-08-17] MEDS: Insulin Glargine 30 UNITS/0.3 ML VIAL SC SCH (09:55)
[2022-08-17] MEDS: HYDROcodone/Acetaminophen 5/325 mg Tablet PO PRN (09:56)
[2022-08-17] MEDS: Lidocaine 4% Patch TD SCH (09:58)
[2022-08-17] MEDS: Cholecalciferol 1,000 UNITS (25 MCG) TAB PO SCH (12:00)
[2022-08-17 14:54] VITALS: BP 136/75; TEMP 98.3
== END 2022-08-17 15:30 | disposition home health service (06) | DRG 554 ==
LOC: ERS 11:40 → 2NO 17:41
PROVIDERS: ADMIT Internal Medicine; ATTEND Internal Medicine
PROC: 30233N1 Transfusion of Nonautologous Red Blood Cells into Peripheral Vein, Percutaneous Approach (ICD-10-PCS; principal; 2022-08-16)
DX: M10.9 Gout, unspecified (principal); N17.9 Acute kidney failure, unspecified; E87.20 Acidosis, unspecified; R65.10 Systemic inflammatory response syndrome (SIRS) of non-infectious origin without acute organ dysfunction; C61 Malignant neoplasm of prostate; N18.30 Chronic kidney disease, stage 3 unspecified; I12.9 Hypertensive chronic kidney disease with stage 1 through stage 4 chronic kidney disease, or unspecified chronic kidney disease; E11.22 Type 2 diabetes mellitus with diabetic chronic kidney disease; D63.8 Anemia in other chronic diseases classified elsewhere; E11.65 Type 2 diabetes mellitus with hyperglycemia; R53.1 Weakness; D47.2 Monoclonal gammopathy; Z20.822 Contact with and (suspected) exposure to COVID-19; Z88.0 Allergy status to penicillin; Z88.2 Allergy status to sulfonamides; Z79.84 Long term (current) use of oral hypoglycemic drugs; Z79.899 Other long term (current) drug therapy; Z90.5 Acquired absence of kidney; Z98.890 Other specified postprocedural states; Z79.4 Long term (current) use of insulin
CPT/HCPCS: 36415; 36416; 36430; 71275; 77412; 80048; 80053; 80202; 81001; 82550; 83605; 84153; 84484; 85025; 86140; 86850; 86900; 86901; 87040; 93005; 96361; 96365; 96375; J0692; J1650; J1815; J2001; J2920; J3010; J3370; J3490; J7050; J7512; P9016; Q9967; U0003; U0005

== ENCOUNTER 2022-10-09 10:36 | Outpatient (CLI) | payer BC ==
[~2022-10-09 10:36] MED LIST changes: +Iopamidol 370 76% 100 ML VIAL ONE; -Iopamidol-370 76% 500 ML 1 ML ONE
== END 2022-10-09 10:37 | disposition home or self-care (01) ==
LOC: CT 10:36
PROVIDERS: ATTEND Internal Medicine Hematology & Oncology
DX: C61 Malignant neoplasm of prostate (principal); C79.51 Secondary malignant neoplasm of bone; D47.2 Monoclonal gammopathy; K86.9 Disease of pancreas, unspecified; M89.9 Disorder of bone, unspecified; M89.58 Osteolysis, other site; N32.89 Other specified disorders of bladder; R91.1 Solitary pulmonary nodule; Z90.5 Acquired absence of kidney
CPT/HCPCS: 71260; 74177; 78306; 82565; A9503; Q9967

== ENCOUNTER 2023-01-07 09:20 | Outpatient (CLI) | payer BC ==
[2023-01-07] MEDS ORDERED: Iopamidol 370 76% 100 ML VIAL ONE (09:40)
== END 2023-01-07 09:21 | disposition home or self-care (01) ==
LOC: CT 09:20
PROVIDERS: ATTEND Internal Medicine Hematology & Oncology
DX: C61 Malignant neoplasm of prostate (principal); C79.51 Secondary malignant neoplasm of bone; D47.2 Monoclonal gammopathy; K86.9 Disease of pancreas, unspecified; Z90.49 Acquired absence of other specified parts of digestive tract
CPT/HCPCS: 71260; 74177; 78306; A9503; Q9967

== ENCOUNTER 2023-01-07 13:08 | Emergency (ER) | payer OTHER, BC ==
[2023-01-07] MEDS ORDERED: HYDROcodone/Acetaminophen 10/325 mg Tablet ONE (13:22)
== END 2023-01-07 14:58 | disposition short-term general hospital (02) ==
LOC: ERS 13:08
DX: R51.9 Headache, unspecified (principal); I12.9 Hypertensive chronic kidney disease with stage 1 through stage 4 chronic kidney disease, or unspecified chronic kidney disease; N18.9 Chronic kidney disease, unspecified; E11.22 Type 2 diabetes mellitus with diabetic chronic kidney disease; W01.198A Fall on same level from slipping, tripping and stumbling with subsequent striking against other object, initial encounter
CPT/HCPCS: 70450; 71260; 72125; 74177; 78306; 93005; A9503; Q9967

== ENCOUNTER 2023-10-30 09:38 | Outpatient (CLI) | payer BC ==
[2023-10-30] MEDS ORDERED: Iopamidol 370 76% 100 ML VIAL ONE (10:54)
== END 2023-10-30 09:39 | disposition home or self-care (01) ==
LOC: NM 09:38
PROVIDERS: ATTEND Internal Medicine Hematology & Oncology
DX: C61 Malignant neoplasm of prostate (principal); C79.51 Secondary malignant neoplasm of bone; D47.2 Monoclonal gammopathy; K86.9 Disease of pancreas, unspecified; N32.89 Other specified disorders of bladder; K22.89 Other specified disease of esophagus
CPT/HCPCS: 71260; 74177; 78306; 82565; A9503; Q9967

== ENCOUNTER 2024-12-15 02:38 | Emergency (ER) | payer MEDICARE, BC ==
[2024-12-15] MEDS ORDERED: HYDROcodone/Acetaminophen 5/325 mg Tablet ONE (03:54)
[2024-12-15 05:16] LABS: Bacteria/HPF None Seen HPF (None Seen); CAUTI Indications for Culture Dysuria,urgency,freq; Glucose, Urine (Dipstick) Greater than 1000 mg/dL (Negative); Leukocyte Negative Leu/uL (Negative); Protein, Urine (Dipstick) Negative (Neg-Trace); Specific Gravity, Urine 1.020 (1.002-1.036); WBC/HPF 0-3 HPF (0-3)
[2024-12-15 05:40] LABS: Urine Culture Reflex No No
== END 2024-12-15 05:26 | disposition home or self-care (01) ==
LOC: ERS 02:38
DX: R33.9 Retention of urine, unspecified (principal); I12.9 Hypertensive chronic kidney disease with stage 1 through stage 4 chronic kidney disease, or unspecified chronic kidney disease; E11.22 Type 2 diabetes mellitus with diabetic chronic kidney disease; N18.9 Chronic kidney disease, unspecified; N32.89 Other specified disorders of bladder; E11.65 Type 2 diabetes mellitus with hyperglycemia; Z79.84 Long term (current) use of oral hypoglycemic drugs
CPT/HCPCS: 51702; 51798; 80053; 81001 ×2; 82962; 85025; 96372; 96374; 96375; 99283; 99285; J1815; J1885; J2360; 36416